=== PATIENT | male | born 1985 | race Caucasian/White ===

== ENCOUNTER 2024-08-24 17:28 | Emergency (ER) | payer BC, OTHER, SELFPAY ==
[2024-08-24 17:37] VITALS: BP 120/88
[2024-08-24 17:59] LABS: Hematocrit 40.7 % (39.0-52.0); Hemoglobin 14.1 g/dL (13.0-18.0); Mean Corp Hgb Conc. 34.6 g/dL (33.0-37.0); Mean Corpuscular Volume 89.3 fL (80.0-94.0); Nucleated Red Blood Cells % 0 % (-); Platelet Count 262 10^3/uL (130-400); Red Cell Dist. Width 13.0 % (11.5-14.5)
[2024-08-24 18:15] LABS: ALT (SGPT) 25 U/L (0-50); AST (SGOT) 22 U/L (17-59); Albumin 4.5 g/dl (3.5-5.0); Alkaline Phosphatase 53 U/L (38-126); Blood Urea Nitrogen 19 mg/dl (9-20); Calcium 9.5 mg/dl (8.4-10.2); Carbon Dioxide 23 mmol/L (22-30); Chloride 109 mmol/L (98-107); Glucose 135 mg/dl (70-99); Potassium 4.1 mmol/L (3.5-5.1); Sodium 139 mmol/L (135-145); Total Protein 7.8 g/dl (6.3-8.2); eGFR > 60.00
--- NOTE | 2024-08-24 19:54 | ED.GENMED ---
History of Present Illness
General
Chief Complaint: Dizziness
Time Seen by Provider: 08/24/24 19:51
History of Present Illness
History of Present Illness:
TIME OF INITIAL EVALUATION
- 8 PM
REVIEW OF OLD RECORDS
- The patient has history of ankylosing spondylitis. I reviewed records, the patient was seen here with abdominal pain in 2020.
Note:
CHIEF COMPLAINT(S)
Dizziness.
HISTORY OF PRESENT ILLNESS
The patient is a 39-year-old male presenting with dizziness. The patient reports that the dizziness began abruptly upon waking up and describes the sensation as being similar to movement, despite not actually moving. The sensation remains constant
and does not appear to fluctuate in severity. The patient mentions that the dizziness becomes more intense when laying down, particularly during repositioning. A physical exam using the [place]-Hallpike maneuver induced nystagmus, which confirmed the
suspicion of positional vertigo.
PLAN
1. Await results of the computed tomography scan to rule out alternative causes of symptoms.
2. Provide a prescription and contact information for physical therapy to assist with managing positional vertigo.
3. Educate the patient about positional vertigo and potential self-management techniques.
DIFFERENTIAL DIAGNOSIS
The Differential Diagnosis includes, in no particular order and is not limited to:
1. Benign paroxysmal positional vertigo
2. Labyrinthitis
3. Vestibular neuritis
4. Menieres disease
5. Cerebrovascular accident
6. Migrainous vertigo
7. Vestibular migraine
8. Acoustic neuroma
9. Orthostatic hypotension
10. Dehydration
PHYSICAL EXAM
- General: Well appearing in no distress
- HEENT: Moist oral mucosa
- Cardiovascular: No murmurs, normal heart rate, regular rhythm, No chest wall tenderness
- Pulmonary: No respiratory distress, breath sounds are clear and equal
- Abdomen: Soft with no peritoneal signs, no tenderness
- Neurologic: Positive [place]-Hallpike maneuver, normal finger-nose bilaterally, gait is normal, normal strength in all extremities
- Psychiatric: Appropriate mental status, normal insight and judgement
- Extremities: Nontender, no edema, moves all extremities equally
- Skin: No rash, no lesions
RADIOLOGY
- CT head obtained and shows no acute abnormality. Of note radiologist suggested the possibility of congenital anomaly as well.
EKG
- Sinus 84, normal axis, no acute ST abnormality
LABS
- CBC normal, chemistries unremarkable
UPDATE
-SUMMARY OF ENCOUNTER
The patient was seen in the emergency department due to dizziness, suspected to be related to an inner ear issue, as suggested by a positive Sindi-Hallpike maneuver indicating positional vertigo. A computed tomography (CT) scan was performed to rule
out other causes such as intracranial mass or hemorrhage. The scan showed no alarming conditions like a mass, bleeding, or stroke. 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
the current symptoms. The emergency physician suggested this could be followed up with a neurosurgeon for further evaluation but strongly suspected the symptoms were due to inner ear issues.
ASSESSMENT
The findings suggest the patients dizziness is likely due to benign paroxysmal positional vertigo (BPPV), potentially related to the inner ear, as no significant neurological causes were identified on the CT scan.
PLAN
1. The patient is advised to follow up with a neurosurgeon to evaluate the anomaly noted on the CT scan to confirm it is of no clinical concern.
2. Encouraged to review and consider trying the Joel maneuver, which can be found online, to alleviate symptoms of positional vertigo.
3. Given contact information for vestibular physical therapy to assist in managing symptoms.
INDEPENDENT REVIEW OF LABS AND INTERPRETATION OF TESTS
- My independent interpretation of the CT scan indicates no alarming findings such as a mass, bleeding, or stroke. 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
PATIENT EDUCATION AND COUNSELING
Discussed the likely diagnosis of inner ear-related vertigo and management strategies, including vestibular exercises like the Joel maneuver. Reinforced the recommendation to follow up with a neurosurgeon regarding the CT scan anomaly for
reassurance.
FOLLOW-UP INSTRUCTIONS
Please call to schedule a follow-up appointment with a neurosurgeon to discuss the CT scan findings. Contact vestibular physical therapy for assistance with symptom management.
MEDICATION RECONCILIATION
No specific medications were administered or prescribed during this visit.
MEDICAL DECISION MAKING
- Number and Complexity of Problems Addressed: Chronic conditions affecting care include the differential diagnosis of benign paroxysmal positional vertigo, and other differential diagnoses such as labyrinthitis, vestibular neuritis, Menieres
disease, cerebrovascular accident, migrainous vertigo, vestibular migraine, acoustic neuroma, orthostatic hypotension, and dehydration.
- Data:
Category 1: CT scan performed and independently interpreted by the emergency physician.
- Risk: Consideration of Admission/Observation: Escalation of care including admission/observation was considered given the complexity and risk of the patients presenting complaint. However, ultimately the patient is deemed safe for outpatient
management with close follow-up based on reassuring work-up results, stable vitals, and patient agreement.
DIAGNOSIS
- Benign paroxysmal positional vertigo (BPPV) - ICD-10: H81.1
I did give patient pertinent findings on CT and recommended neurosurgical follow-up but I doubt that this is a contributing factor to his symptoms which are more consistent with BPPV. I have given him prescription for vestibular rehab physical
therapy
Past History
Past History
ED Past Medical History: Other (Ankylosing spondylitis)
Social History
Tobacco: Non-smoker
Phy Exam
Physical Exam
Physical Exam:
See HPI
Course
Orders/Labs/Results
Orders:
Orders
08/24/24 17:30
EKG [Electrocardiogram (*1)] Urgent
Reason for Study: Vertigo / Dizzy
EKG- Treatment ONCE
08/24/24 17:41
CT Head W/o Iv Contrast Urgent
Comment:
Reason For Exam: headache and dizziness since yesterday
08/24/24 17:49
Complete Blood Count/With Diff Urgent
Comprehensive Metabolic Panel Urgent
Abnormal Lab Results
08/24/24
17:49
RBC 4.56 L 10^6/uL
(4.70-6.10)
Chloride 109 H mmol/L
(98-107)
Glucose 135 H mg/dl
(70-99)
08/24/24 17:49
08/24/24 17:49
Vital Signs
Initial and Last Documented VS:
Initial Vital Signs
Temp Pulse Resp BP Pulse Ox
37.1 C 91 20 120/88 99
08/24/24 17:37 08/24/24 17:37 08/24/24 17:37 08/24/24 17:37 08/24/24 17:37
Last Documented Vital Signs
Temp Pulse Resp BP Pulse Ox
37.1 C 78 18 123/76 97
08/24/24 17:37 08/24/24 20:24 08/24/24 20:24 08/24/24 20:24 08/24/24 20:24
*Pulse Oximetry
SaO2: 99
Oxygen Mode of Delivery: Room air
Patient hypoxic: no
*Critical Care Note
Total Time (30-74mins, 75-104mins- exclusive of procedures): Not Applicable
ED Attending Note
-
Portions of this chart may have been created with voice recognition software.� Occasional wrong word or��sound alike� substitutions may have occurred due to the inherent limitations of voice recognition software.
Discharge Plan
Departure
Patient Disposition: Home (Routine Discharge)
Date of Disposition: 08/24/24
Time of Disposition: 20:30
Patient with high blood pressure during this ER visit?: Yes
Discharge Problem:
Benign paroxysmal positional vertigo
Instructions: Vertigo (a type of dizziness), Exercises (maneuvers) for benign paroxysmal positional vertigo, BLOOD PRESSURE
Prescriptions:
No Action
dicyclomine 20 MG tablet
20 mg PO QIDPRN PRN (Reason: abdominal cramps) Qty: 10 0RF
polyethylene glycol 3350 17 GRAMS powder in packet
17 grams PO DAILY Qty: 5 0RF
Referrals:
Sandra Molina MD [Active, Neurosurgery]
Activity Restrictions/Additional Instructions:
I suspect that your symptoms are related to a condition called benign paroxysmal positional vertigo. You could consider trying the Joel maneuver. I am giving you the prescription for vestibular physical therapy. Call [phone] to make an
appointment for vestibular rehab/r physical therapy.
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
Sandra Molina. I do not feel that this has anything to do with your current symptoms.
Interventions
Interventions:
*Risk Screen - Suicide Last Done: 08/24/24 17:37
*General Assessment Last Done: 08/24/24 20:23
*Neglect/Abuse Screening Last Done: 08/24/24 17:37
*ED- Fall Risk Assessment Last Done: 08/24/24 20:23
*ED COVID-19 Vaccine History Last Done: 08/24/24 20:23
ED- Neurological Assessment Last Done: 08/24/24 20:26
Discharge Date and Time
Print Language: SOMALI
[2024-08-24 20:22] VITALS: BMI 25.9
[2024-08-24 20:24] VITALS: BP 123/76
== END 2024-08-24 20:47 | disposition home or self-care (01) ==
LOC: EMR 17:28
PROVIDERS: Emergency Medicine; EMERGENCY PHYSICIAN Emergency Medicine; FAMILY PHYSICIAN Internal Medicine
DX: H81.10 Benign paroxysmal vertigo, unspecified ear (principal)
CPT/HCPCS: 99284; 70450; 80053; 85025; 93005